=== PATIENT | female | born 1970 | race Caucasian/White ===

== ENCOUNTER 2018-05-04 11:06 | Outpatient (CLI) | payer BC, SELFPAY ==
[2018-05-04 12:06] LABS: HCT 35.5 % (36.0-46.0); HGB 11.3 g/dL (12.0-15.5); Mean Corp. HGB Concentration 31.8 g/dL (32.0-36.0); Mean Corpuscular Hemoglobin 26.4 pg (27.0-33.0); Mean Corpuscular Volume 82.9 fL (80-95); Mean Platelet Volume 11.6 fL (8.0-11.0); Platelet Count 332 x1000/uL (130-400); RBC 4.28 m/cumm (4.00-5.20); RBC Distribution Width 14.8 % (11.7-14.6)
[2018-05-04 13:47] LABS: Iron 22 ug/dL (50-175)
[2018-05-04 14:00] LABS: Ferritin 6 ng/mL (8-388)
== END 2018-05-04 11:26 ==
PROVIDERS: PCP Family Medicine; Visit Provider Family Medicine
DX: D64.9 Anemia, unspecified (principal); D50.8 Other iron deficiency anemias
CPT/HCPCS: 36415; 85027; 82728; 83540

== ENCOUNTER 2020-11-16 12:23 | Outpatient (REF) | payer BC, SELFPAY ==
--- NOTE | 2020-11-16 08:30 | PAPFT_PTH ---
PATIENT: Yulia Seaman LOC: [facility] U#:[id number] AGE/SX: 50/F ROOM: RE11/16/[address]: Kat De La Torre MD, DC : 1970 BED: DIS: 11/16/2020 SPEC #: [id number] RECD: 11/16/20 12:43 STATUS: KAVYA VASQUEZ #: [id number] LA NENA: 11/16/20 08:[address]: Kat De La Torre DEPT: [facility] Cytology RECD BY: Krupa Rothman Tissues: 1 - CX/ENDOCX FOR PAP SMEARS Procedures: PAP THIN PREP/UVM Screening HPV DNA PROBE Comments: [id number]
== END 2020-11-16 12:24 | disposition home or self-care (01) ==
LOC: LBN 12:23
PROVIDERS: PCP Family Medicine; Visit Provider Family Medicine
DX: Z12.4 Encounter for screening for malignant neoplasm of cervix (principal); Z11.51 Encounter for screening for human papillomavirus (HPV)
CPT/HCPCS: 88142; 87624

== ENCOUNTER 2022-09-11 13:05 | Outpatient (CLI) | payer BC, SELFPAY ==
--- NOTE | 2022-09-11 13:30 | RT.EKG_ITS ---
APPROVED REPORT Exam: Resting ECG Reason for Exam: EKG prior to foot surgery scheduled 10/03/22 Patient Location: O HR:66 bpm ECG Measurements Heart Rate 66 AXIS RI 153 P 32 QRSd 132 QRS 5 QT 451 T 29 QTc 473 Conclusion Sinus rhythm...normal P axis, V-rate 50- 99 Normal Electrocardiogram
== END 2022-09-11 13:06 | disposition home or self-care (01) ==
PROVIDERS: PCP Family Medicine; Visit Provider Family Medicine
DX: Z01.818 Encounter for other preprocedural examination (principal)
CPT/HCPCS: 93010

== ENCOUNTER 2025-04-02 18:28 | Outpatient (REF) | payer BC, SELFPAY ==
[2025-04-02 16:23] LABS: Cannabinoids THC Negative (Negative); METHADONE URINE SCREEN Negative (Negative)
== END 2025-04-02 18:29 | disposition home or self-care (01) ==
LOC: LBN 18:28
PROVIDERS: PCP Family Medicine; Visit Provider Family Medicine
DX: F90.9 Attention-deficit hyperactivity disorder, unspecified type (principal)
CPT/HCPCS: 80307